=== PATIENT | female | born 1940 | race Caucasian/White ===

== ENCOUNTER 2022-04-16 10:59 | Outpatient (CLI) | payer OTHER, SELFPAY | END 2022-04-16 11:00 | disposition home or self-care (01) | PROVIDERS: Visit Provider Internal Medicine Gastroenterology | DX: Z53.9 Procedure and treatment not carried out, unspecified reason (principal) ==

== ENCOUNTER 2022-04-16 11:45 | Outpatient (CLI) | payer OTHER, SELFPAY | END 2022-04-16 11:46 | disposition home or self-care (01) | LOC: OP CLINIC 11:46 | PROVIDERS: PCP Family Medicine; Visit Provider Internal Medicine Gastroenterology | DX: R10.13 Epigastric pain (principal); K31.89 Other diseases of stomach and duodenum; R19.8 Other specified symptoms and signs involving the digestive system and abdomen | CPT/HCPCS: 43239; 88305; 88342; J2250; J3010 ==